=== PATIENT | female | born 2005 | race Caucasian/White ===

== ENCOUNTER 2025-06-07 11:13 | Emergency (ER) | payer OTHER, SELFPAY ==
--- OUTSIDE RECORDS SUMMARY | 2025-05-17 11:44 | XMS_ITS | Encounter Summary ---
Author Organization [facility] Address [address] [place] [address] Care Team Providers Care Building Dismantler Name Role Phone JoeAlondra ren TAMIA BECKER Primary Care Provider [phone] Reason for Visit * Auth/Cert Specialty Diagnoses / Procedures Referred By Tru craven Referred To Contact Surgery Diagnoses Gender dysphoria Gender dysphoria [F64.9] Procedures [place] MASTECTOMY, SIMPLE, COMPLETE bilateral nipple sparing mastectomies Vidya Amaral MD [facility] [address] [place] [address] Phone: tel: fax: [facility] [address] [place], [place] [address] Phone: tel: Referral ID Status Reason Start Date Expiration Date Visits Re quested Visits Authorized [id number] 1 1 Encounter Details Date Type Department Care Team (Late st Contact Info) Description 05/17/2025 11:44 AM CDT - 05/17/2025 6:13 PM CDT Hospital Encounter [facility] Pre[facility]/Phase II [address] [place] [address] Vidya Amaral MD [facility] [address] [place] [address] Discharge Disposition: Home or Self Care Social History Tobacco Use Types Packs/Day Years Used Date Smoking Tobacco: Never Passive Smoke Exposure: Never Smokeless Tobacco: Never Tobacco Cessation:Counseling Given: Not Answered Alcohol Use Standard Drinks/Week Comments Yes 0 (1 standard drink = 0.6 oz pur e alcohol) 1 per week Interpersonal Safety Answer Date Record ed Do you feel physically and e motionally safe where you currently live? Yes 05/17/2025 Within the past 12 months, h ave you been hit, slapped, kicked or otherwise physically hurt by someone? No 05/17/2025 Within the past 12 months, h ave you been humiliated or emotionally abused in other ways by your partner or ex-partner? No 05/17/2025 Comments No Sex and Gender Information Value Date Recorded Sex Assigned at Not on file Legal Sex Male 12:09 PM CDT Gender Identity Transgender Male 04/26/2025 9:08 AM CDT Sexual Orientation Not on file Travel History Travel Start Travel End [place] 02/13/2025 05/10/2025 documented as of this encounter Last Filed Vital Signs Vital Sign Reading Time Taken Comments Blood Pressure 114/72 05/17/2025 4:45 PM CDT Pulse 78 05/17/2025 4:45 PM CDT Temperature 36.9 C (98.4 F) 05/17/2025 4:45 PM CDT Respiratory Rate 14 05/17/2025 4:45 PM CDT Oxygen Saturation 97% 05/17/2025 4:45 PM CDT Inhaled Oxygen Concentration - - Weight 65.3 kg (143 lb 14.4 oz) 025 12:13 PM CDT Height 170.2 cm (5' 7) 05/17/2025 12:1 3 PM CDT Body Mass Index 22.54 05/17/2025 12:13 PM CDT documented in this encounter Discharge Instructions * Discharge Instructions* Shelia Campos RN - 05/17/2025 12:56 PM CDT Today you were given 1,000 mg of Tylenol at 12:54 pm. The recommended daily maximum dose is 4000 mg. Same Day Surgery Discharge Instructions for Sedation and General Anesthesia It's not unusual to feel dizzy, light-headed or faint for up to 24 hours after surgery or while taking pain medication. If you have these symptoms: sit for a few minutes before standing and have someone assist you when you get up to walk or use the bathroom. You should rest and relax for the next 24 hours. We recommend you make arrangements to have an adult stay with you for at least 24 hours after your discharge. Avoid hazardous and strenuous activity. DO NOT DRIVE any vehicle or operate mechanical equipment for 24 hours following the end of your surgery. Even though you may feel normal, your reactions may be affected by the medication you have received. Do not drink alcoholic beverages for 24 hours following surgery. Slowly progress to your regular diet as you feel able. It's not unusual to feel nauseated and/or vomit after receiving anesthesia. If you develop these symptoms, drink clear liquids (apple juice, rafael ed, broth, 7-up, etc. ) until you feel better. If your nausea and vomiting persists for 24 hours, please notify your surgeon. All narcotic pain medications, along with inactivity and anesthesia, can cause constipation. Drinking plenty of liquids and increasing fiber intake will help. For any questions of a medical nature, call your surgeon. Do not make important decisions for 24 hours. If you had general anesthesia, you may have a sore throat for a couple of days related to the breathing tube used during surgery. You may use Cepacol lozenges to help with this discomfort. If it worsens or if you develop a fever, contact your surgeon. If you feel your pain is not well managed with the pain medications prescribed by your surgeon, please contact your surgeon's office to let them know so they can address your concerns. Jama Henson Drain Home Care Instructions What is a Jama Henson (HARRISON) Drain? This is a small tube that connects to a bulb. Its gentle suction removes extra fluid from a surgical wound. Your doctor will remove the tube when the amount of fluid decreases. The color and amount of fluid varies. Right after surgery the fluid is bright red. Over time, it changes to light pink and may become clear or the color of straw. How should I care for my tube site? Keep the skin around the tube dry. Check with your doctor about how to shower. You may need to cover the site with plastic when you shower. Or, it may be okay to let the site get wet and put on a clean bandage after you shower. If the bandage gets wet, you will need to change it. How should I care for the bulb? Keep the bulb compressed at all times except while you empty it. Attach the bulb to your clothing with tape and a safety pin. Try to empty the bulb at the same time every day. Empty the bulb at least once a day, or when the bulb becomes half full. If it becomes too full, there will not be enough suction. To empty the bulb: Wash your hands. Open the bulb cap. Drain the fluid from the bulb into the measuring cup. If you have two drains, use two cups. Clean the mouth of the bulb with an alcohol wipe if your nurse told you to. Squeeze the bulb (fold it in half before you close the bulb cap) If it does not stay compressed, call your nurse or clinic. Write the amount of drainage on the drainage record (see back page). If you have two drains, write the amount for each bulb. Flush the drainage down the toilet. Rinse the measuring cup. Wash your hands. When should I call my doctor? Call your doctor if: You have a fever over 101??F (38.3??C), taken under the tongue. The drainage increases or smells bad. The skin around your tube has increased redness, swelling, warmth or pain. You have pus or fluid leaking at the tube site. Your stitches break. You think the tube is not draining. The tube falls out. You have any problems or concerns. Your drainage record: Empty your bulb at least once per day or when 1/2 to 1/3 full. Write down the date, time and amountof drainage in each bulb. Bring this record to each clinic visit. Date Time Bulb 1: amount of Drainage in (ml or cc) Bulb 2: amount of drainage (in ml or cc) Notes If you have questions or concerns about your procedure, call Dr. Amaral at [phone] documented in this encounter Medications at Time of Discharge ALBUTEROL SULFATE PO Take by mouth. senna-docusate (SENOKOT-S/JESSIE LACE) 8.6-50 MG tablet Take 1 tablet by mouth daily. TESTOSTERONE CYPIONATE & PROP IJ Inject as directed. documented as of this encounter Progress Notes * Kortney Ram RN - 05/17/2025 6:04 PM CDT A&O, VSS, pain well controlled. Incisions under lance wrap with steri strips intact, CDI. IV out.Belongings returned to patient. No Rx noted on discharge. Message sent to primary surgical team forreview. Patient OK with discharge to home without script in hand at this time due to low pain at time of discharge. Will update once response from surgical team received. Patient advised to call rn occupational number with pain increase if unable to control with pre-discussed ibuprofen and tylenol . Patient verbalized understanding and is comfortable discharging to home at this time. documented in this encounter H&P Notes * Vidya Amaral MD - 05/17/2025 1:32 PM CDT I have reviewed the H & P that is linked to this encounter and examined the patient. There are no significant changes. Source Note - Bernardo, Provider - 05/13/2025 9:04 AM CDT documented in this encounter Nursing Notes * Nita Brock RN - 05/17/2025 3:29 PM CDT Total amount of liposuction was 200 mL. * Celine Zuleta RN - 05/17/2025 1:13 PM CDT HARRISON drain discharge instructions reviewed with Mike Smalls in presence of pt. Discharge instructions on how to strip drains briefly reviewed. All questions answered. No further concerns at this point. Teach back method used to ensure patient and family/friend understanding. Pt and mom report no need for further instructions after surgery. * Dana Genao RN - 05/11/2025 4:43 PM CDT Patient returned call to inform us that he has his H&P scheduled tomorrow (05/12/25). Surgery scheduled 05/17/[address] Amaral. documented in this encounter Miscellaneous Notes * Op Note - Vidya Amaral MD - 05/17/2025 2:05 PM CDT PLASTIC SURGERY OPERATIVE NOTE Patient Name: Scotty Tracey Date of Service: 05/17/2025 PREOPERATIVE DIAGNOSES: 1. Gender dysphoria [F64.9] POSTOPERATIVE DIAGNOSES: 1. Gender dysphoria [F64.9] SURGEON: Vidya Amaral MD OR STAFF: Anthropology Professor: Vilma Patterson RN; Marley Perez RN Relief Anthropology Professor: Nita Brock RN Relief Scrub: Kimberly Avalos Scrub Person: Linda Sethi Imposer: David Teixeira ANESTHESIA: General ESTIMATED BLOOD LOSS: * No blood loss amount entered * SPECIMEN(S): ID Type Source Tests Collected by Time Destination 1 : Left breast tissue:160gm Tissue Breast, Left SURGICAL PATHOLOGY EXAM Vidya Amaral MD05/17/2025 3:11 PM 2 : Right breast tissue:135 gm Tissue Breast, Right SURGICAL PATHOLOGY EXAM Vidya Amaral MD 05/17/2025 2:52 PM PROCEDURES: 1. Bilateral nipple sparing mastectomies INDICATIONS: Patient is a 20 year old with gender dysphoria. They present today for bilateral mastectomies in treatment of their dysphoria. DESCRIPTION OF PROCEDURE: Patient was marked for incisions and taken to the operating room. General anesthesia was administered. The chest area was prepped and draped in a sterile manner. A transverse incision was then made at the level of the inframammary fold and dissection was carried down to the underlying chest wall. The breast tissue was undermined at the level of the pectoralis muscle and dissection was carried cephalad until the entire breast tissue was undermined. A superior mastectomy flap was then designed and breast tissue was removed from the flap with electrocautery. Hemostasis was achieved. Patient was brought to the upright position and excess skin along the inframammary fold was marked.Patient was returned to supine position. Incision was made along the superior mastectomy flap to remove redundant skin. Hemostasis was achieved. Additional tissue was removed and the superior mastectomy flap to achieve a smooth contour. Tumescent was infiltrated into the preaxial areas and standardliposuction was completed with a 4 mm cannula. Additional breast tissue was removed after liposuction. Inferiorly, the skin was tacked to the inframammary fold using interrupted 2-0 PDS suture. The incision was reapproximated with interrupted 2-0 PDS in the superficial fascia. The skin incision was then closed with interrupted 3-0 Monocryl in the subcutaneous tissue followed by running 4-0 subcuticular Monocryl suture. Prior to closure a 15 Burundian HARRISON drain was placed and secured with a 3-0 nylon suture. The same procedure was completed on the other side. AA transverse incision was then made at the level of the inframammary fold and dissection was carried down to the underlying chest wall. The breasttissue was undermined at the level of the pectoralis muscle and dissection was carried cephalad until the entire breast tissue was undermined. A superior mastectomy flap was then designed and breast tissue was removed from the flap with electrocautery. Hemostasis was achieved. Patient was brought to the upright position and excess skin along the inframammary fold was marked.Patient was returned to supine position. Incision was made along the superior mastectomy flap to remove redundant skin. Hemostasis was achieved. Additional tissue was removed and the superior mastectomy flap to achieve a smooth contour. Tumescent was infiltrated into the preaxial areas and standardliposuction was completed with a 4 mm cannula. Additional breast tissue was removed after liposuction. Inferiorly, the skin was tacked to the inframammary fold using interrupted 2-0 PDS suture. The incision was reapproximated with interrupted 2-0 PDS in the superficial fascia. The skin incision was then closed with interrupted 3-0 Monocryl in the subcutaneous tissue followed by running 4-0 subcuticular Monocryl suture. Prior to closure a 15 Burundian HARRISON drain was placed and secured with a 3-0 nylon suture. Benzoin and Steri-Strips were placed along the inframammary incisions followed by gauze and Lance wrap. FINDINGS: Right breast tissue weighed 135 grams and left breast tissue weighed 160 grams. MD Munir [facility] [phone] documented in this encounter Plan of Treatment Not on file documented as of this encounter Goals Goal Patient Goal Type Associated Problems Recent Progress Patient-Stated? Author MYC ECC SURG ENROLL Care Plan MyC ECC SURG ENROLL No RudolphPriscila rothman Lary documented as of this encounter Procedures Procedure Name Priority Date/Time Associated Diagnosis Comments SURGICAL PATHOLOGY EXAM Routine 05/17/2025 2:52 PM CDT MASTECTOMY, SIMPLE, COMPLETE 05/17/2025 1:43 PM CDT Gender dysphoria Special Needs *asthma LAB RESULT - HIM SCAN 05/12/2025 12:00 AM CDT documented in this encounter Results * Surgical Pathology Exam (05/17/2025 2:52 PM CDT) Case Report Surgical Pathology Report Case: [id number] Authorizing Provider: Vidya Amaral MD Collected: 05/17/2025 02:52 PM Ordering Location: [facility] Received: 05/17/2025 03:06 PM [facility] OR Pathologist: Izabela Huffman MD Specimens: A) - Breast, Right, Right breast tissue:135 gm B) - Breast, Left, Left breast tissue:160gm 05/19/2025 11:01 AM CDT [facility] Final Diagnosis A. Breast, right, resection: - Benign breast tissue and skin. - Weight: 135 grams. B. Breast, left, resection: - Benign breast tissue and skin. - Weight: 160 grams. 05/19/2025 11:01 AM CDT [facility] at 1101 CDT Clinical Information Gender dysphoria. 05/19/2025 11:01 AM CDT [facility] Gross Description A(2). Breast, Right, Right breast tissue:135 gm: Received in formalin, labeled the patient's name, MR number and right breast tissue, are multiple irregular, yellow-juarez and lobulated portions of fibroadipose tissue partially surfaced by irregular, pink-juarez and wrinkled skin; weighing 135 grams and measuring 11.3 x 10.6 x 3.1 cm in aggregate. The skin is grossly unremarkable; sectioning reveals a yellow-juarez and lobulated cut surface without evidence of nodularity or induration. The cut surface is comprised of 50% yellow, fatty adipose tissue and 50% white-juarez fibrous stroma. Metal Bench Patternmaker sections are submitted in formalin in three cassettes. Time collected: 14:52 on 05/17/2025 Time in formalin: 15:07 05/17/2025 B(1). Breast, Left, Left breast tissue:160gm: Received in formalin, labeled the patient's name, MR number and left breast tissue, are multiple irregular, yellow-juarez and lobulated portions of fibroadipose tissue partially surfaced by irregular, pink-juarez and wrinkled skin; weighing 160 grams and measuring 12.7 x 9.3 x 4.6 cm in aggregate. The skin is grossly unremarkable; sectioning reveals a yellow-juarez and lobulated cut surface without evidence of nodularity or induration. The cut surface is comprised of 50% yellow, fatty adipose tissue and 50% white-juarez fibrous stroma. Metal Bench Patternmaker sections are submitted in formalin in three cassettes. Time collected: 15:11 on 05/17/2025 Time in formalin: 15:17 05/17/2025 Sabrina ANDRE(ASCP)CM 05/17/2025 3:41 PM 05/19/2025 11:01 AM [facility] Microscopic Description Microscopic examination was performed. 05/19/2025 11:01 AM [facility] Performing Labs The technical component of this testing was completed at [facility]. Stain controls for all stains resulted within this report have been reviewed and show appropriate reactivity. 05/19/2025 11:01 AM CDT LABORATORY Case Images 05/19/2025 11:01 AM CDT LABORATORY Tissue RIGHT BREAST STRUCTURE / Unknown 05/17/2025 3:11 PM CDT 05/17/2025 3:17 PM CDT Tissue specimen (specimen) RIGHT BREAST STRUCTURE / Unknown 05/17/2025 2:52 PM CDT 05/17/2025 3:06 PM CDT Vidya Amaral MD LAB - BEAKER AP Final R esult LABORATORY [facility] [address] Lab (1st floor, no room number) [place] [address], [place] LABORATORY [facility] [address] 1[address] floor, [address] [place] [address], [place] [phone] * Lab Result - HIM Scan (05/12/2025 12:00 AM CDT) 05/12/2025 Provider Outside NON-BEAKER LAB TESTING Final Result documented in this encounter Visit Diagnoses Not on filedocumented in this encounter Administered Medications Inactive Administered Medications - up to 3 most recent administrations Medication Order MAR Action Action Date Dose Rate Site acetaminophen (TYLENOL) tablet 1,000 mg 1,000 mg, Oral, ONCE, On Fri05/17/25 at 1230, For 1 dose, Maximum acetaminophen dose from all sources = 75 mg/kg/day not to exceed 4 gram, Pre-procedure $Given 05/17/2025 12:54 PM CDT 1,000 mg documented in this encounter Active and Recently Administered Medications Times are shown in CDT. Scheduled Medication Order 05/15/2025 05/16/2025 05/17/2025 acetaminophen (TYLENOL) tablet 1,000 mg (COMPLETED) 1,000 mg, Oral, ONCE, On Fri05/17/25 at 1230, For 1 dose, Maximum acetaminophen dose from all sources = 75 mg/kg/day not to exceed 4 gram, Pre-procedure 1254 ($Given - Provi renard: Celine Zuleta RN) ceFAZolin Sodium (ANCEF) injection 2 g (COMPLETED) Routine, 2 g, Intravenous, PRE-OP/PRE-PROCEDURE, Starting on Fri05/17/25 at 1211, For 1 dose, Give first dose within 1 hour PRIOR to incision. If patient weight is greater than or equal to 120 kg increase dose to 3 g., Indications: Perioperative Pharmacoprophylaxis, Pre-procedure 1350 ($Given - Provi renard: Gibran Urrutia APRN SENIOR MOBILE APPLICATION DEVELOPER) PRN Medication Order 05/15/2025 05/16/2025 05/17/2025 BUPivacaine (MARCAINE) 0.25 % injection (CANCELED) PRN, Starting on Fri05/17/25 at 1515, Intra-procedure 1515 ($Given - Provi renard: Vidya Amaral MD) Gee's solution (1L LR + 30 mL 1% lidocaine + 1 mL EPI 1:1,000) (CANCELED) PRN, Starting on Fri05/17/25 at 1517, Intra-procedure 1517 ($Given - Provi renard: Vidya Amaral MD) sodium chloride 0.9% (bottle) irrigation (CANCELED) PRN, Starting on Fri05/17/25 at 1404, Intra-procedure 1404 ($Given - Provi renard: Vidya Amaral MD) documented in this encounter Additional Health Concerns Active Problems Noted Date Diagnosed Date MyC ECC SURG ENROLL 02/09/2025 documented as of this encounter Care Teams Building Dismantler Relationship Specialty Start Date End Date Alondra Aguirre APRN GROCERY STOCKER [address] [address] PCP - General 04/26/25 documented as of this encounter
--- OUTSIDE RECORDS SUMMARY | 2025-05-17 13:40 | XMS_ITS | Encounter Summary ---
Author Organization [place] Address [address] [place] [id number] Care Team Providers Care Facilities Maintenance Engineer Name Role Phone Alondra Aguirre TAMIA TICKET DISPATCHER Primary Care Provider [phone] Reason for Visit * Auth/Cert Specialty Diagnoses / Procedures Referred By Tru t Referred To Contact Surgery Diagnoses Gender dysphoria Gender dysphoria [F64.9] Procedures [place] MASTECTOMY, SIMPLE, COMPLETE bilateral nipple sparing mastectomies Vidya Amaral MD [facility] [address] [place] [address] Phone: tel: fax: [facility] [address] [place] [address] Phone: tel: Referral ID Status Reason Start Date Expiration Date Visits Re quested Visits Authorized [id number] 1 1 Encounter Details Date Type Department Care Team (Late st Contact Info) Description 05/17/2025 1:40 PM CDT [facility] [address] [place] [address] Juan Alberto Rangel MD [facility] [address] [place] [id number] Geovanna Matias Anesthesia Record Procedure Summary Procedure Name Responsible Anesthesiologist Anesthesia Start Time Anesthesia Stop Time bilateral nipple sparing mastectomies (Bilateral: Breast) Juan Alberto Rangel MD 05/17/25 1340 05/17/25 1557 Events Date Time Event Comment 05/17/2025 1220 1340 An Start Anesthesia Star t is defined as when the anesthesia provider assumed care, began anesthesia prep, remained continuously present with the patient, and excludes all time for performing the pre-anesthesia evaluation. The Pre-Anesthesia Evaluation was completed before Anesthesia Start. 1343 An Start Data 1345 AN REASSESS I attest that I have identified and re-evaluated the patient immediately before the induction of anesthesia and I am satisfied that the anesthetic plan is suitable for the patient's condition and procedure. The first vital signs recorded are pre-induction. Gibran Urrutia APRN CONTRACTING ENGINEER 1347 An Induction 1348 An LMA 1355 Anesthesia Ready for Procedu re 1406 AN INCISION 1547 LMA Removed 1549 an stop data 1557 An Stop Electronically signed by Demian Fraser APRN CONTRACTING ENGINEER on May 17, 2025 4:01 PM Meds Name Total midazolam 1 mg/mL 2 mg fentaNYL 50 mcg/mL 100 mcg lidocaine 2% 100 mg propofol 10 mg/mL 1,086.87 mg phenylephrine (AMINA-SYNEPHRINE) injection 100 mcg dexamethasone (DECADRON) 4 mg/mL 4 mg ondansetron 2 mg/mL 4 mg ceFAZolin Sodium (ANCEF) injection 2 g 2 g dexmedeTOMIDine (PRECEDEX) 4 mcg/mL bolu s 20 mcg HYDROmorphone (DILAUDID) (PF) injection 0.5 mg/0.5 mL 0.3 mg LR 1,000 mL * Agents Name O2 N2O Air Exp Sevoflurane Exp Isoflurane Exp Desflurane Ins Sevoflurane Ins Isoflurane Ins Desflurane * Blood No blood administrations on file. Lines, Drains, and Airways Type Details Placement Removal Incision/Surgical Site Incision; 5; 1405; Anterior, Left; Breast 05/17/25 1405 by Vilma Patetrson, ANA Incision/Surgical Site Incision; 5; 1405; Anterior, Right; Breast 05/17/25 1405 by Vilma Patterson, ANA Peripheral IV 05/17/25; 1243; 20 G ; Left, Posterior; Hand; Chlorhexidine; None; 1; Tolerated well 05/17/25 1243 by Celine Zuleta RN 05/17/25 1802 by Kortney Ram RN Supraglottic Airway Placement Date: 05/17/25; Placement Time: 1401 (created via procedure documentation); Mask Ventilation: 0; LMA Size: 4; Airway Brand: I-Gel; Attempts: 1 05/17/25 1401 by Gibran Urrutia, JIGGER MACHINE OPERATOR CONTRACTING ENGINEER 05/17/25 1547 by Demian Fraser, JIGGER MACHINE OPERATOR CONTRACTING ENGINEER Drain 05/17/25; 1514; Closed/Suction; Right; Breast; Bulb; 15 Colombian 05/17/25 1514 by Nita Brock RN 05/17/25 1913 by Inpatient, Nurse Drain 05/17/25; 1517; Closed/Suction; Left; Breast; Bulb; 15 Colombian 05/17/25 1517 by Nita Brock RN 05/17/25 1913 by Inpatient, Nurse documented in this encounter Social History Tobacco Use Types Packs/Day Years Used Date Smoking Tobacco: Never Passive Smoke Exposure: Never Smokeless Tobacco: Never Alcohol Use Standard Drinks/Week Comments Yes 0 [...] file Travel History Travel Start Travel End [place] 02/13/2025 05/10/2025 documented as of this encounter OR Notes * Anesthesia Postprocedure Evaluation - Mercedez Hanley MD - 05/17/2025 4:12 PM CDT Patient: Scotty Tracey Procedure: Procedure(s): bilateral nipple sparing mastectomies Anesthesia Type: General Note: Disposition: Outpatient Postop Pain Control: Uneventful Sign Out: Well controlled pain PONV: No Neuro/Psych: Uneventful Sign Out: Acceptable/Baseline neuro status Airway/Respiratory: Uneventful Sign Out: Acceptable/Baseline resp. status CV/Hemodynamics: Uneventful Sign Out: Acceptable CV status; No obvious hypovolemia; No obvious fluid overload Other NRE: DID A NON-ROUTINE EVENT OCCUR? Last vitals: Vitals Value Taken Time BP 97/53 05/17/25 16:00 Temp 36.7 ??C (98.06 ??F) 05/17/25 16:10 Pulse 91 05/17/25 16:10 Resp 14 05/17/25 16:10 SpO2 99 % 05/17/25 16:10 Vitals shown include unfiled device data. Electronically Signed By: Mercedez Hanley MD May 17, 2025 4:12 PM * Anesthesia Procedure Notes - Gibran Urrutia APRN CRNA - 05/17/2025 2:01 PM CDTAssociated Order(s): Airway Airway Staff - Anesthesiologist: Juan Alberto Rangel MD CONTRACTING ENGINEER: Gibran Urrutia APRN CONTRACTING ENGINEER Performed By: CONTRACTING ENGINEER Consent for Airway Urgency: elective Indications and Patient Condition Indications for airway management: kaden-procedural Induction type:intravenous Mask difficulty assessment: 0 - not attempted Final Airway Details Final airway type: supraglottic airway Supraglottic Airway Details Type: LMA Brand: I-Gel LMA size: 4 Post intubation assessment Placement verified by: capnometry, equal breath sounds and chest rise Number of attempts at approach: 1 Number of other approaches attempted: 0 Secured with: tape Ease of procedure: easy Dentition: Intact and Unchanged * Anesthesia Preprocedure Evaluation - Juan Alberto Rangel MD - 05/17/2025 11:56 AM CDT Anesthesia Pre-Procedure Evaluation Patient: Scotty Tracey : 2005 Procedure : Procedure(s): bilateral nipple sparing mastectomies Past Medical History: Diagnosis Date Asthma Transgender male Past Surgical History: Procedure Laterality Date WISDOM TOOTH EXTRACTION Allergies Allergen Reactions Seasonal Allergies Runny nose Sneezing Social History Tobacco Use Smoking status: Never Passive exposure: Never Smokeless tobacco: Never Substance Use Topics Alcohol use: Yes Wt Readings from Last 1 Encounters: No data found for Wt Anesthesia Evaluation Pt has not had prior anesthetic ROS/MED HX ENT/Pulmonary: (+) asthma (-) sleep apnea Neurologic: - neg neurologic ROS Cardiovascular: - neg cardiovascular ROS METS/Exercise Tolerance: Hematologic: Musculoskeletal: GI/Hepatic: - neg GI/hepatic ROS (-) GERD Renal/Genitourinary: - neg Renal ROS Endo: (-) Type II DM Psychiatric/Substance Use: Infectious Disease: Malignancy: Other: Physical Exam Airway Mallampati: I TM distance: >3 FB Neck ROM: full Mouth opening: >= 4 cm Cardiovascular - normal exam Dental (+) Completely normal teeth Pulmonary - normal exam Neurological - normal exam He appears awake, alert and oriented x3. Other Findings OUTSIDE LABS: CBC: No results found for: WBC, HGB, HCT, PLT BMP: No results found for: NA, POTASSIUM, CHLORIDE, CO2, BUN, CR, GLC COAGS: No results found for: PTT, INR, FIBR POC: No results found for: BGM, HCG, HCGS HEPATIC: No results found for: ALBUMIN, PROTTOTAL, ALT, AST, GGT, ALKPHOS, BILITOTAL,BILIDIRECT, PEMA OTHER: No results found for: PH, LACT, A1C, CHARBEL, PHOS, MAG, LIPASE, AMYLASE, TSH,T4, T3, CRP, SED Anesthesia Plan ASA Status: 2 NPO Status: NPO Appropriate Anesthesia Type: General. Airway: supraglottic airway. Induction: intravenous. Maintenance: Balanced, TIVA. Techniques and Equipment: - Airway: Planned airway equipment includes supraglottic airway. - Monitoring Plan: standard ASA monitoring Consents Anesthesia Plan(s) and associated risks, benefits, and realistic alternatives discussed. Questions answered and patient/roofing sales representative(s) expressed understanding. - Discussed: - Discussed with: Patient Postoperative Care Pain management: multimodal analgesia. Comments: Juan Alberto Rangel MD I have reviewed the pertinent notes and labs in the chart from the past 30 days and (re)examined the patient. Any updates or changes from those notes are reflected in this note. Clinically Significant Risk Factors Present on Admission documented in this encounter Miscellaneous Notes * Anesthesia Care Transfer Note - Demian Fraser APRN CRNA - 05/17/2025 4:13 PM CDT Patient: Scotty Tracey Procedure: Procedure(s): bilateral nipple sparing mastectomies Diagnosis: Gender dysphoria [F64.9] Diagnosis Additional Information: No value filed. Anesthesia Type: General Note: Oropharynx: oropharynx clear of all foreign objects and spontaneously breathing Level of Consciousness: drowsy Oxygen Supplementation: nasal cannula Level of Supplemental Oxygen (L/min / FiO2): 2 Independent Airway: airway patency satisfactory and stable Dentition: dentition unchanged Vital Signs Stable: post-procedure vital signs reviewed and stable Report to RN Given: handoff report given Patient transferred to: PACU Comments: Pt exhibits spontaneous respirations, follows commands, suctioned, LMA removed, exchanging well, transferred to pacu with O2 @ 2L via NC, all monitors and alarms on, VSS, patent IV, report and transfer of care to RN. Handoff Report: Identifed the Patient, Identified the Reponsible Provider, Reviewed the pertinent medical history, Discussed the surgical course, Reviewed Intra-OP anesthesia mangement and issues during anesthesia, Set expectations for post-procedure period and Allowed opportunity for questions andacknowledgement of understanding Vitals: Vitals Value Taken Time BP 97/53 05/17/25 16:00 Temp 36.7 ??C (98.06 ??F) 05/17/25 16:12 Pulse 92 05/17/25 16:12 Resp 8 05/17/25 16:12 SpO2 97 % 05/17/25 16:12 Vitals shown include unfiled device data. Electronically Signed By: Demian Fraser APRN CRNA May 17, 2025 4:13 PM documented in this encounter Plan of Treatment Not on file documented as of this encounter Goals Goal Patient Goal Type Associated Problems Recent Progress Patient-Stated? Author MYC ECC SURG ENROLL Care Plan MyC ECC SURG ENROLL No Klaudia Priscila G Care pathway for general surgery Care Plan Care pathway for general surgery No Susan Rodriguez MYC ECC SURG DAY 10 MED Care Plan Care pathway for general surgery No Susan Rodriguez MYC ECC SURG DAY 4 PREVENT BLOOD CLOT - GOAL Care Plan Care pathway for general surgery No Susan Rodriguez MYC ECC GENERAL SURGERY Care Plan General Surgery Health Exam Escalation No Susan Rodriguez MYC ECC SURG HEALTH NOT YES - 5 Care Plan MYC ECC SURG HEALTH NOT YES -5 No Susan Rodriguez documented as of this encounter Procedures Procedure Name Priority Date/Time Associated Diagnosis Comments ANE AIRWAY SUPRAGLOTTIC PERFORMABLE Routine 05/17/2025 2:01 PM CDT documented in this encounter Results * ANE AIRWAY SUPRAGLOTTIC PERFORMABLE (05/17/2025 2:01 PM CDT) Narrative Gibran Urrutia APRN CONTRACTING ENGINEER - 05/17/2025 2:01 PM CDT Gibran Urrutia APRN CONTRACTING ENGINEER 05/17/2025 2:01 PM Airway Staff - Anesthesiologist: Juan Alberto Rangel MD CONTRACTING ENGINEER: Gibran Urrutia APRN CONTRACTING ENGINEER Performed By: CONTRACTING ENGINEER Consent for Airway Urgency: elective Indications and Patient Condition Indications for airway management: kaden-procedural Induction type:intravenous Mask difficulty assessment: 0 - not attempted Final Airway Details Final airway type: supraglottic airway Supraglottic Airway Details Type: LMA Brand: I-Gel LMA size: 4 Post intubation assessment Placement verified by: capnometry, equal breath sounds and chest rise Number of attempts at approach: 1 Number of other approaches attempted: 0 Secured with: tape Ease of procedure: easy Dentition: Intact and Unchanged Juan Alberto Rangel MD [place] ANESTHESIA Final Result documented in this encounter Visit Diagnoses Not on filedocumented in this encounter Administered Medications Inactive Administered Medications - up to 3 most recent administrations Medication Order MAR Action Action Date Dose Rate Site ceFAZolin Sodium (ANCEF) injection 2 g Routine, 2 g, Intravenous, PRE-OP/PRE-PROCEDURE, Starting on Fri05/17/25 at 1211, For 1 dose, Give first dose within 1 hour PRIOR to incision. If patient weight is greater than or equal to 120 kg increase dose to 3 g., Indications: Perioperative Pharmacoprophylaxis, Pre-procedureIndications:Perioperati ve Pharmacoprophylaxis $Given 05/17/2025 1:50 PM CDT 2 g dexAMETHasone (DECADRON) injection Intravenous, PRN, Administer over 1 Minutes, Starting on e 05/17/25 at 1347, Anesthesia Intra-op $Given 05/17/2025 1:47 PM CDT 4 mg dexmedeTOMIDine (PRECEDEX) 4 mcg/mL bolus Intravenous, CONTINUOUS PRN, Starting on Fri05/17/25 at 1408, Anesthesia Intra-op $Bolus 05/17/2025 3:10 PM CDT 8 mcg $New Bag 05/17/2025 2:08 PM CDT 12 mcg fentaNYL (PF) (SUBLIMAZE) injection Intravenous, PRN, Administer over 3-5 Minutes, Starting on Fri05/17/25 at 1347, Anesthesia Intra-op $Given 05/17/2025 2:08 PM CDT 50 mcg $Given 05/17/2025 1:47 PM CDT 50 mcg HYDROmorphone (PF) (DILAUDID) injection Intravenous, PRN, Administer over 2-10 Minutes, Starting on Fri05/17/25 at 1433, Anesthesia Intra-op $Given 05/17/2025 2:30 PM CDT 0.3 mg lactated ringers infusion Intravenous, CONTINUOUS PRN, Anesthesia Intra-op, Starting on Fri05/17/25 at 1343, Until Fri05/17/25 at 1601 $New Bag 05/17/2025 3:37 PM CDT $New Bag 05/17/2025 1:43 PM CDT lidocaine 2% injection (MDV) Intravenous, PRN, Starting on Fri05/17/25 at 1347, Anesthesia Intra-op $Given 05/17/2025 1:47 PM CDT 100 mg midazolam (VERSED) injection Intravenous, Administer over 2 Minutes, PRN, Starting on Fri05/17/25 at 1341, Anesthesia Intra-op $Given 05/17/2025 1:41 PM CDT 2 mg ondansetron (ZOFRAN) injection Intravenous, PRN, Administer over 2-5 Minutes, Starting on Fri05/17/25 at 1510, Anesthesia Intra-op $Given 05/17/2025 3:10 PM CDT 4 mg phenylephrine (AMINA-SYNEPHRINE) injection Intravenous, CONTINUOUS PRN, Starting on Fri05/17/25 at 1424, Anesthesia Intra-op $New Bag 05/17/2025 2:24 PM CDT 100 mcg propofol (DIPRIVAN) injection 10 mg/mL vial Intravenous, PRN, Starting on Fri05/17/25 at 1347, Anesthesia Intra-op Rate/Dose Change 05/17/2025 3:10 PM CDT 60 mcg/kg/min 23.508 mL/hr Rate/Dose Change 05/17/2025 2:43 PM CDT 100 mcg/kg/min 39. 18 mL/hr Rate/Dose Change 05/17/2025 2:31 PM CDT 150 mcg/kg/min 58. 77 mL/hr documented in this encounter Additional Health Concerns Active Problems Noted Date Diagnosed Date MyC ECC SURG ENROLL 02/09/2025 Care pathway for general surgery 04/16/2025 General Surgery Health Exam Escalation 5 MYC ECC SURG HEALTH NOT YES -5 05/07/2025 documented as of this encounter Care Teams Facilities Maintenance Engineer Relationship Specialty Start Date End Date Alondra Aguirre APRN TICKET DISPATCHER [address] [address] PCP - General 04/26/25 documented as of this encounter
--- OUTSIDE RECORDS SUMMARY | 2025-05-17 13:45 | XMS_ITS | Encounter Summary ---
Author Organization [place] Address [address] [place] [address]. [place] [address] Care Team Providers Care Drop Hammer Mechanic Name Role Phone JoeAlondra ren TAMIA BECKER Primary Care Provider [phone] Reason for Visit * Auth/Cert Specialty Diagnoses / Procedures Referred By Tru craven Referred To Contact Surgery Diagnoses Gender dysphoria Gender dysphoria [F64.9] Procedures [place] MASTECTOMY, SIMPLE, COMPLETE bilateral nipple sparing mastectomies Vidya Amaral MD [facility] [address] [place] [address] Phone: tel: [facility] [address] [place] [address] Phone: tel: Referral ID Status Reason Start Date Expiration Date Visits Re quested Visits Authorized [id number] 1 1 Encounter Details Date Type Department Care Team (Late st Contact Info) Description 05/17/2025 1:45 PM CDT - 05/17/2025 3:45 PM CDT [facility] [address] [place] [address] Vidya Amaral MD [facility] [address] [place], [place] [address] bilateral nipple sparing mastectomies Surgery Details Date/Time Status Location OR Service Patient Class Case Class Case Type Trauma Case? 05/17/2025 1:45 PM Posted [facility] OR OR [facility] Same Day Surgery Elective Panel 1 Procedure LRB Anes Op Region Wound Class Comments bilateral nipple sparing mastectomies Bilateral General Breast I-Clean Surgeon Surgeon Role Service Panel Vidya Amaral MD [facility] onstruction 1 Special Needs *asthma documented in this encounter Social History Tobacco [...] Sign Reading Time Taken Comments Blood Pressure 125/68 05/17/2025 12:13 PM CDT Pulse 55 05/17/2025 12:13 PM CDT Temperature 36.6 C (97.8 F) 05/17/2025 12:13 PM CDT Respiratory Rate 14 05/17/2025 12:1 3 PM CDT Oxygen Saturation 99% 05/17/2025 12: 13 PM CDT Inhaled Oxygen Concentration - - [...] about your procedure, call Dr. Amaral at [phone] documented in this encounter Medications at Time [...] surgical team received. Patient advised to call construction cost estimator number with pain increase if unable to [...] [F64.9] SURGEON: Vidya Amaral MD OR STAFF: Gas Blender: Vilma Patterson RN; Marley Perez RN Relief Gas Blender: Nita Brock RN Relief Scrub: Kimberly Avalos Scrub Person: Linda Sethi Board Mill Supervisor: David Teixeira ANESTHESIA: General ESTIMATED BLOOD LOSS: [...] Monocryl suture. Prior to closure a 15 Albanian HARRISON drain was placed and secured with [...] was infiltrated into the preaxial areas and standard liposuction was completed with a 4 mm cannula. [...] Monocryl suture. Prior to closure a 15 Albanian HARRISON drain was placed and secured with a 3-0 nylon suture. Benzoin and Steri-Strips were placed along the inframammary incisions followed by gauze and Lance wrap. FINDINGS: Right breast tissue weighed 135 grams and left breast tissue weighed 160 grams. MD Munir Thomas Pl[facility] Surgery [phone] documented in this encounter Plan of Treatment Not on file documented as of this encounter Goals Goal Patient Goal Type Associated Problems Recent Progress Patient-Stated? Author MYC ECC SURG ENROLL Care Plan MyC ECC SURG ENROLL No Priscila Rudolph documented as of this encounter Procedures Procedure Name Priority Date/Time Associated Diagnosis Comments SURGICAL PATHOLOGY EXAM Routine 05/17/2025 2:52 PM CDT MASTECTOMY, SIMPLE, COMPLETE 05/17/2025 1:43 PM CDT Gender dysphoria Special Needs *asthma LAB RESULT - HIM SCAN 05/12/2025 12:00 AM CDT documented in this encounter Results * Surgical Pathology Exam (05/17/2025 2:52 PM CDT) Case Report Surgical Pathology Report Case: [id number] Authorizing Provider: Vidya Amaral MD Collected: 05/17/2025 02:52 PM Ordering Location: [facility] Received: 05/17/2025 03:06 PM [facility] Main OR Pathologist: Izabela Huffman MD Specimens: A) - Breast, Right, Right breast tissue:135 gm B) - Breast, Left, Left breast tissue:160gm 05/19/2025 11:01 AM CDT [facility] Final Diagnosis A. Breast, right, resection: - Benign breast tissue and skin. - Weight: 135 grams. B. Breast, left, resection: - Benign breast tissue and skin. - Weight: 160 grams. 05/19/2025 11:01 AM [facility] at 1101 CDT Clinical Information Gender dysphoria. 05/19/2025 11:01 AM [facility] Gross Description A(2). Breast, Right, Right [...] adipose tissue and 50% white-juarez fibrous stroma. Territory Sales Manager sections are submitted in formalin in three [...] adipose tissue and 50% white-juarez fibrous stroma. Territory Sales Manager sections are submitted in formalin in three cassettes. Time collected: 15:11 on 05/17/2025 Time in formalin: 15:17 05/17/2025 Sabrina ANDRE(ASCP) 05/17/2025 3:41 PM 05/19/2025 11:01 AM [facility] Microscopic Description Microscopic examination was performed. 05/19/2025 11:01 AM [facility] Performing Labs The technical component of this testing was completed at [facility]. Stain controls for all [...] - BEAKER AP Final R esult LABORATORY [facility] [address] Lab (1st floor, no room number) [place] [address], [facility] [address] 1[address] floor, [address] [place] [address], [facility] [phone] * Lab Result - HIM Scan (05/12/2025 12:00 AM CDT) 05/12/2025 Provider Outside NON-BEAKER LAB TESTING Final Result documented in this encounter Visit Diagnoses Diagnosis Gender dysphoria documented in this encounter Administered Medications Inactive Administered Medications - up to 3 most recent administrations Medication Order MAR Action Action Date Dose Rate Site acetaminophen (TYLENOL) tablet 1,000 mg 1,000 mg, Oral, ONCE, On Fri05/17/25 at 1230, For 1 dose, Maximum acetaminophen dose from all sources = 75 mg/kg/day not to exceed 4 gram, Pre-procedure $Given 05/17/2025 12:54 PM CDT 1,000 mg BUPivacaine (MARCAINE) 0.25 % injection PRN, Starting on Fri05/17/25 at 1515, Intra-procedure $Given 05/17/2025 3:15 PM CDT 30 mLs Operative Site/Surgical Site Gee's solution (1L LR + 30 mL 1% lidocaine + 1 mL EPI 1:1,000) PRN, Starting on Fri05/17/25 at 1517, Intra-procedure $Given 05/17/2025 3:17 PM CDT 252 mLs Operative Site/Surgical Site sodium chloride 0.9% (bottle) irrigation PRN, Starting on Fri05/17/25 at 1404, Intra-procedure $Given 05/17/2025 2:04 PM CDT 1,000 mLs Operative Site/Surgical Site documented in this encounter Active and Recently [...] ($Given - Provi renard: Gibran Urrutia APRN MILLER HELPER) PRN Medication Order 05/15/2025 05/16/2025 05/17/2025 BUPivacaine [...] documented as of this encounter Care Teams Drop Hammer Mechanic Relationship Specialty Start Date End Date Alondra Aguirre APRN TRAVEL COUNSELOR [employer] [address] [address] PCP - General 04/26/25 documented as of this encounter
[2025-06-07] VITALS (8 sets, daily range): BP systolic 113–119; BP diastolic 65–86; PULSE 121–145; RESP 20–26; TEMP 36.6; O2SAT 89–98; BMI 20.8
--- NOTE | 2025-06-07 11:36 | ED_ITS ---
HPI - General Adult General Date Seen: 06/07/25 Chief complaint: Shortness of Breath/Dyspnea Stated complaint: shortness of breath Time Seen by Provider: 06/07/25 11:31 History of Present Illness HPI narrative: Patient is a 20-year-old transgender male here for evaluation of shortness of breath and cough. He says for the past couple of weeks he has been having an increased need for his inhaler although he has not felt short of breath per se. Shortness of breath he just noted this morning when he was unable to walk across campus due to dyspnea. He also has had a cough and has been coughing up some sputum. Has not had a fever that he is aware of. Denies chest pain. No unusual lower extremity swelling or pain. Past medical history of asthma, recent bilateral mastectomy in [place] 2 weeks ago as an outpatient procedure. He has been using his inhaler fairly regularly, last use at about 45 minutes ago. Related Data Home Medications ?Medication ?Instructions ?Recorded ?Confirmed albuterol 90 mcg/actuation aerosol mcg inhalation 05/23 03/16 inhaler testosterone IM 06/07/25 Allergies Allergy/AdvReac Type Severity Reaction Status Date / Time No Known Drug Allergies Allergy Verified 06/07/25 11:25 Review of Systems Status of ROS: Reports: 10 or more systems reviewed and unremarkable except as noted in History and below [facility] Social History Smoking Status: Never smoker How often do you have a drink containing alcohol: 2-4 times a month AUDIT-C Alcohol total score: 2 Non-prescribed substance use: marijuana (any form) Exam Narrative: Exam Narrative: Vital signs reviewed In general, alert, nontoxic young man, does not appear to be in any respiratory distress. Head: Normocephalic, atraumatic. Eyes: Sclera clear. Pupils equal and reactive. ENT: Mucous membranes moist. Neck: Supple without adenopathy. Heart: Tachycardic and regular. Lungs: Lungs are overall clear, good air movement, no crackles or wheezes. Abdomen: Soft, nontender to palpation. Extremities: Well perfused, pulses intact. No significant edema. Neurologic: Alert, conversant. Speech fluent, face symmetric. Moves all extremities equally. Skin: Warm, dry well perfused. Affect: Normal. Const: Vital Signs, click to edit/add: Vital Signs - 24 hr 06/07/25 11:18 06/07/25 12:03 06/07/25 12:04 Temperature 98 F Pulse Rate 138 H Pulse Rate [Right Pulse Oximeter] 145 H 133 H Respiratory Rate 26 H 20 Blood Pressure 119/86 Blood Pressure [Ri ght Upper Arm] 113/65 119/86 Pulse Oximetry 89 94 96 Oxygen Delivery Me thod Room Air Room Air 06/07/25 12:05 06/07/25 12:15 06/07/25 12:30 Temperature Pulse Rate 133 H 135 H 124 H Pulse Rate [Right Pulse Oximeter] Respiratory Rate Blood Pressure Blood Pressure [Ri ght Upper Arm] Pulse Oximetry 94 95 98 Oxygen Delivery Me thod 06/07/25 12:32 06/07/25 12:45 Temperature Pulse Rate 123 H 121 H Pulse Rate [Right Pulse Oximeter] Respiratory Rate Blood Pressure 117/75 Blood Pressure [Ri ght Upper Arm] Pulse Oximetry 97 98 Oxygen Delivery Me thod Course Course ED Course: Patient presents with dyspnea today associated with cough, increased inhaler needs over the past couple of weeks. Diagnostic considerations would include asthma exacerbation, viral illness, pneumonia, pulmonary embolism, myocarditis, congestive heart failure, pneumothorax, arrhythmia, among others. He is markedly tachycardic and is also hypoxic. Will obtain chest x-ray, EKG and basic labs. At this time given his lung exam I do not think a neb is likely to be helpful and given his tachycardia will avoid that for now. Chest x-ray by my review was negative. Final radiology report likewise negative. With ongoing tachycardia, clear lungs, normal white blood cell count, presentation seem less likely to be due to pn pneumonia and I did recommend CT scan to look for PE. His D-dimer returned at 1.7. Troponin was normal. No evidence of heart failure. By my review of his chest CT scan there is no large blurred in PE, radiology notes no PE, he has hematoma in the right breast which he is aware of, he says he is going in next week have that drained. Hemoglobin is 15. He does have some inflammatory or infectious airway disease, small pneumo mediastinum but no pneumothorax. Heart rate is improved with fluids though not normal. Nonetheless, I am not finding any evidence of serious cause for his symptoms. Will go ahead and put him on some prednisone, recommend recheck in a couple days if not feeling improved. Return any time for significant worsening or new symptoms. Vital Signs Vital signs: Initial Vital Signs Temperature 98 F 06/07/25 11:18 Temperature Source Temporal Artery Scan 06/07/25 11:18 Pulse Rate 145 H 06/07/25 11:18 Pulse Rhythm Regular 06/07/25 11:18 Pulse Strength 3+ Normal 06/07/25 11:18 Respiratory Rate 26 H 06/07/25 11:18 Blood Pressure 113/65 06/07/25 11:18 Blood Pressure Mean 81 06/07/25 11:18 Blood Pressure Position Sitting 06/07/25 11:18 Pulse Oximetry 89 06/07/25 11:18 Oxygen Delivery Method Room Air 06/07/25 11:18 Vital Signs Temperature 98 F 06/07/25 11:18 Pulse Rate 145 H 06/07/25 11:18 Respiratory Rate 26 H 06/07/25 11:18 Blood Pressure 113/65 06/07/25 11:18 Pulse Oximetry 89 06/07/25 11:18 Oxygen Delivery Method Room Air 06/07/25 11:18 Temperature 98 F 06/07/25 11:18 Pulse Rate 121 H 06/07/25 12:45 Respiratory Rate 20 06/07/25 12:03 Blood Pressure 117/75 06/07/25 12:32 Pulse Oximetry 98 06/07/25 12:45 Oxygen Delivery Method Room Air 06/07/25 12:03 Medications Administered Medications: Discontinued Medications Generic Name Dose Route Start Last Admin Trade Name Freq PRN Reason Stop Dose Admin Sodium Chloride 1,000 mls @ 1,000 mls/hr 06/07/25 12:15 06/07/25 13:40 0.9 % Sodium Chloride 1000 Ml IV 06/07/25 13:14 Infused .Q1H EMMY Infusion Medical Decision Making Lab Data Lab results reviewed: Yes I reviewed the patient's lab results Labs: Lab Results 06/07/25 06/07/25 Range/Units 11:30 11:44 WBC 8.53 (4.50-11.00) K/uL RBC 5.14 (4.30-5.90) m/uL Hgb 15.9 (13.5-17.5) gm/dL Hct 48.5 (37.0-53.0) % MCV 94 (80-100) fL MCH 31 (26-34) pg MCHC 33 (32-36) gm/dL RDW Coeff of Frankie 13.0 (11.5-15.5) % Plt Count 330 (140-440) K/uL Neut % (Auto) 78.1 H (42.0-72.0) % Lymph % (Auto) 11.1 L (20-44) % Maries % (Auto) 5.3 (0.0-11.0) % Eos % (Auto) 5.0 (0.0-7.0) % Baso % (Auto) 0.4 (0.0-3.0) % Neut # (Auto) 6.70 (1.7-7.0) K/uL Lymph # (Auto) 0.90 (0.90-2.90) K/uL Maries # (Auto) 0.50 (0.00-0.90) K/UL Eos # (Auto) 0.43 (0.00-0.50) K/uL Baso # (Auto) 0.03 (0.00-0.30) K/uL Abs Immat Gran (auto) 0.01 (0.00-0.30) K/uL Imm/Tot Granulo (auto) 0.1 % D-Dimer Quant (PE/DVT) 1.73 H (0.00-0.50) ug/ml Sodium 141 (135-149) mmol/L Potassium 3.9 (3.6-5.1) mmol/L Chloride 104 (96-114) mmol/L Carbon Dioxide 29 (20-32) mmol/L Anion Gap 8 (7-15) mEq/L BUN 16 (5-24) mg/dL Creatinine 0.9 (0.5-1.5) mg/dL Estimated Creat Clear 120.78 Estimated GFR 125 ml/min Glucose 101 (60-115) mg/dL Calcium 9.5 (8.4-10.6) mg/dL C-Reactive Protein 0.8 (0.5-1.0) mg/dL SARS-CoV-2 (PCR) Negative SARS-CoV-2 (Negative) Influenza Type A (PCR) Negative PCR FLU A (Negative) Influenza Type B (PCR) Negative PCR FLU B (Negative) RSV (PCR) Negative PCR RSV (Negative) POC Troponin I 0.00 L (0.01-0.04) ng/ml Imaging Data Chest x-ray: Attestation: I have reviewed the pertinent imaging results. Radiologist's impression: Patient: Scotty Tracey MR#: [id number] : 2005 Acct:[id number] Loc: ED Service Date: 06/07/[address]: Ordering Physician: Ness Mckeon M.D. Date of Service: 06/07/25 Procedure(s): XR chest 1V portable Accession Number(s): [id number] cc: Ness Mckeon M.D.; Provider,Not a Local~ For Patients: As a result of the Cures Act, medical imaging exams and procedure reports are released immediately into your electronic medical record. You may view this report before your referring provider. If you have questions, please contact your health care provider. INDICATION: Shortness of breath TECHNIQUE: Chest 1 view COMPARISON: None FINDINGS: Cardiovascular and mediastinum: Heart size and vasculature are normal in caliber and appearance. Lungs and pleural spaces: Lungs are clear. No sign of infiltrate or mass. No sign of pleural effusion. No pneumothorax. Bones and soft tissues: No significant findings. IMPRESSION: No acute findings. Dictated by Sukhdev Min MD @ 06/07/2025 12:15:[address] scan - chest: Attestation: I have reviewed the pertinent imaging results. Radiologist's impression: Ordering Physician: Ness Mckeon M.D. Date of Service: 06/07/25 Procedure(s): CT angio chest PE protocol Accession Number(s): [id number] cc: Ness Mckeon M.D.; Provider,Not a Local~ For Patients: As a result of the Cures Act, medical imaging exams and procedure reports are released immediately into your electronic medical record. You may view this report before your referring provider. If you have questions, please contact your health care provider. INDICATION: Recent surgery with shortness of breath and tachycardia. Recent bilateral mastectomy. COMPARISON: Same day chest radiograph TECHNIQUE: CT angiogram chest with contrast, pulmonary embolism protocol. Multiplanar axial, coronal, and sagittal reformats are included. MIP images to improve detection of pulmonary emboli are included. Intravenous contrast: 95 mL Isovue 370. FINDINGS: PE: Well-timed contrast bolus. No pulmonary emboli. Normal caliber main pulmonary artery. Normal sized right heart chambers. No reflux of contrast below the diaphragm. Airway: Normal central tracheobronchial tree. There is circumferential bronchial wall thickening from the mid to peripheral lungs. Lungs: Good lung expansion. There is some scattered tree-in-bud nodules. No consolidations. No edema. No emphysema. Pleura: No pleural effusion. No pneumothorax. Lymph nodes: Right axillary and subpectoral adenopathy. The largest right subpectoral lymph node measures 1.3 x 1.4 cm. The largest right axillary lymph node measures 1.4 x 1.3 cm. Left axillary lymph nodes are mildly prominent but not technically enlarged by size criteria.. Mediastinum: Small pneumomediastinum. No mass. Heart and great vessels: No pericardial effusion. Normal cardiac chamber size. Scattered atherosclerotic plaques. No aortic aneurysm. Chest wall: Heterogeneous collection in the right mastectomy bed measures 2.7 x 8.0 x 10.6 cm (AP by transverse by cc). Along the medial margin it is fairly hyperdense and the other portion has a more fluid density. There is deep subcutaneous edema and stranding in the anterior chest wall/mastectomy sites bilaterally. Upper abdomen: Moderate amount of ingested food and fluid in the stomach. Bones: No fractures. No focal bone lesions. IMPRESSION: 1. No pulmonary embolism. 2. Infectious or inflammatory airways disease. 3. Small pneumomediastinum. No pneumothorax. 4. Postoperative hematoma/seroma in the right mastectomy site. 5. Right subpectoral and right larger than left axillary lymph nodes are probably reactive. Discussed with Dr. Mckeon at 12:58 p.m. on 06/07/2025. Please note that all CT scans at this facility use dose modulation, iterative reconstruction, and/or weight-based dosing when appropriate to reduce radiation dose to as low as reasonably achievable. Dictated by Digna Atkinson MD @ 06/07/2025 12:59:11 PM Discharge Plan Discharge Clinical Impression: Asthma with acute exacerbation Patient Disposition: Home, Self-Care Condition: Improved Instructions: Asthma (DC) Additional Instructions: Use your inhaler as needed. Prednisone as prescribed. Your lab tests today are overall reassuring. Right your D-dimer which we used to screen for blood clots is elevated, we your CT scan does not show any sign of blood clots. D-dimer can also be elevated postoperatively and I suspect that is the cause of your elevated D-dimer. There is no evidence of pneumonia. I would expect you to gradually improve over the next week. If you are feeling worse, have new symptoms such as high fevers, lightheadedness, fainting, or other worsening. If you are not feeling better in the next week or so, follow-up with primary care for recheck. Surgery follow-up as planned for the hematoma. Prescriptions: No Action albuterol 90 mcg/actuation aerosol inhalation testosterone IM Follow Up/Referrals: Provider,Not a Local [Primary Care Provider, Family Practice] Stand Alone Forms: [employer] Info Instructions
[2025-06-07 11:52] LABS: Hematocrit* 48.5 % (37.0-53.0); Hemoglobin* 15.9 gm/dL (13.5-17.5); Immature Granulocytes Abs Auto 0.01 K/uL (0.00-0.30); Immature Granulocytes Pct Auto 0.1 %; Mean Corpuscular HGB Conc 33 gm/dL (32-36); Mean Corpuscular Hemoglobin 31 pg (26-34); Mean Corpuscular Volume 94 fL (80-100); RDW Coefficient of Variation % 13.0 % (11.5-15.5); Red Blood Count* 5.14 m/uL (4.30-5.90); White Blood Count* 8.53 K/uL (4.50-11.00)
[2025-06-07 11:54] LABS: Lymphocytes Absolute Auto 0.90 K/uL (0.90-2.90); Slide Review Reflex No
--- NOTE | 2025-06-07 12:03 | CRLHL7_ITS ---
For Patients: As a result of the Century Cures Act, medical imaging exams and procedure reports are released immediately into your electronic medical record. You may view this report before your referring provider. If you have questions, please contact your health care provider. INDICATION: Recent surgery with shortness of breath and tachycardia. Recent bilateral mastectomy. COMPARISON: Same day chest radiograph TECHNIQUE: CT angiogram chest with contrast, pulmonary embolism protocol. Multiplanar axial, coronal, and sagittal reformats are included. MIP images to improve detection of pulmonary emboli are included. Intravenous contrast: 95 mL Isovue 370. FINDINGS: PE: Well-timed contrast bolus. No pulmonary emboli. Normal caliber main pulmonary artery. Normal sized right heart chambers. No reflux of contrast below the diaphragm. Airway: Normal central tracheobronchial tree. There is circumferential bronchial wall thickening from the mid to peripheral lungs. Lungs: Good lung expansion. There is some scattered tree-in-bud nodules. No consolidations. No edema. No emphysema. Pleura: No pleural effusion. No pneumothorax. Lymph nodes: Right axillary and subpectoral adenopathy. The largest right subpectoral lymph node measures 1.3 x 1.4 cm. The largest right axillary lymph node measures 1.4 x 1.3 cm. Left axillary lymph nodes are mildly prominent but not technically enlarged by size criteria.. Mediastinum: Small pneumomediastinum. No mass. Heart and great vessels: No pericardial effusion. Normal cardiac chamber size. Scattered atherosclerotic plaques. No aortic aneurysm. Chest wall: Heterogeneous collection in the right mastectomy bed measures 2.7 x 8.0 x 10.6 cm (AP by transverse by cc). Along the medial margin it is fairly hyperdense and the other portion has a more fluid density. There is deep subcutaneous edema and stranding in the anterior chest wall/mastectomy sites bilaterally. Upper abdomen: Moderate amount of ingested food and fluid in the stomach. Bones: No fractures. No focal bone lesions. IMPRESSION: 1. No pulmonary embolism. 2. Infectious or inflammatory airways disease. 3. Small pneumomediastinum. No pneumothorax. 4. Postoperative hematoma/seroma in the right mastectomy site. 5. Right subpectoral and right larger than left axillary lymph nodes are probably reactive. Discussed with Dr. Mckeon at 12:58 p.m. on 06/07/2025. Please note that all CT scans at this facility use dose modulation, iterative reconstruction, and/or weight-based dosing when appropriate to reduce radiation dose to as low as reasonably achievable. Dictated by Digna Atkinson MD @ 06/07/2025 12:59:11 PM (Electronically Signed)
[2025-06-07 12:04] LABS: Chloride* 104 mmol/L (96-114)
[2025-06-07 12:05] LABS: Potassium* 3.9 mmol/L (3.6-5.1); Sodium* 141 mmol/L (135-149)
[2025-06-07 12:08] LABS: Anion Gap 8 mEq/L (7-15); Blood Urea Nitrogen* 16 mg/dL (5-24); Calcium* 9.5 mg/dL (8.4-10.6); Carbon Dioxide* 29 mmol/L (20-32); Creatinine* 0.9 mg/dL (0.5-1.5); Est. Creatinine Clearance* 120.78; Estimated Glomerular Filt Rate 125 ml/min; Glucose* 101 mg/dL (60-115)
[2025-06-07 12:10] LABS: D Dimer Quantitative* 1.73 ug/ml (0.00-0.50); Troponin, Point-of-Care* 0.00 ng/ml (0.01-0.04)
--- OUTSIDE RECORDS SUMMARY | 2025-06-07 12:11 | XMS_ITS | Encounter Summary ---
Author Organization [facility] Address [facility] [place] [address] Care Team Providers Care Online Tutor Name Role Phone Alondra Aguirre TAMIA QUANTITATIVE MANAGER Primary Care Provider [phone] Encounter Details Date Type Department Care Team (Latest Contact Info) Description 05/17/2025 Travel Social History Tobacco Use Types Packs/Day Years [...] file Travel History Travel Start Travel End [place] 02/13/2025 05/10/2025 documented as of this encounter Plan of Treatment Not on file documented as of this encounter Goals Goal Patient Goal Type Associated Problems Recent Progress Patient-Stated? Author MYC ECC SURG ENROLL Care Plan MyC ECC SURG ENROLL No Priscila Rudolph Care pathway for general surgery Care Plan Care pathway for general surgery No Susan Rodriguez MYC ECC SURG DAY 10 MED Care Plan Care pathway for general surgery No Susan Rodriguez MYC ECC SURG DAY 4 PREVENT BLOOD CLOT - GOAL Care Plan Care pathway for general surgery No LilliantSusan MYC ECC GENERAL SURGERY Care Plan General Surgery Health Exam Escalation No Susan Rodriguez MYC ECC SURG HEALTH NOT YES - 5 Care Plan MYC ECC SURG HEALTH NOT YES -5 No Susan Rodriguez documented as of this encounter Visit Diagnoses Not on filedocumented in this encounter Additional Health Concerns Active Problems Noted Date Diagnosed Date MyC ECC SURG ENROLL 02/09/2025 Care pathway for general surgery 04/16/2025 General Surgery Health Exam Escalation MYC ECC SURG HEALTH NOT YES -5 05/07/2025 documented as of this encounter Care Teams Online Tutor Relationship Specialty Start Date End Date Alondra Aguirre APRN QUANTITATIVE MANAGER [address] [address] PCP - General 04/26/25 documented as of this encounter
--- OUTSIDE RECORDS SUMMARY | 2025-06-07 12:11 | XMS_ITS | Encounter Summary ---
Author Organization [facility] Address [address] [place] [address]. [place] [address] Care Team Providers Care Mechanical Technical Service Specialist Name Role Phone JoeAlondra ren TAMIA BECKER Primary Care Provider [phone] Encounter Details Date Type Department Care Team (Late st Contact Info) Description 05/19/2025 Results Follow-Up [facility] Services - Surgical Specialties Service Line [address] [place] [id number] Vidya Amaral MD [facility] [address] [id number] Social History Tobacco Use Types Packs/Day Years [...] file Travel History Travel Start Travel End [place] 02/13/2025 05/10/2025 documented as of this encounter Plan of Treatment Not on file documented as of this encounter Goals Goal Patient Goal Type Associated Problems Recent Progress Patient-Stated? Author MYC ECC SURG ENROLL Care Plan MyC ECC SURG ENROLL No Priscila Rudolph Care pathway for general surgery Care Plan Care pathway for general surgery No Lilliant, Susan MYC ECC SURG DAY 10 MED Care Plan Care pathway for general surgery No Rodrigohart, [facility] MYC ECC SURG DAY 4 PREVENT BLOOD CLOT - GOAL Care Plan Care pathway for general surgery No Rodrigohart, Susan MYC ECC GENERAL SURGERY Care Plan General Surgery Health Exam Escalation No Rodrig[facility]art[place]un[place] MYC ECC SURG HEALTH NOT YES - [...] documented as of this encounter Care Teams Mechanical Technical Service Specialist Relationship Specialty Start Date End Date Alondra Aguirre APRN CANVASSING MANAGER [address] [address] PCP - General 04/26/25 documented as of this encounter
--- OUTSIDE RECORDS SUMMARY | 2025-06-07 12:11 | XMS_ITS | Clinical Summary ---
Author Organization [facility] Address [address] [address] Care Team Providers Care Mold Cutting Machine Operator Name Role Phone Clinician, Not Found MD Primary Care Provider Un available Source Comments You are receiving this document as you are listed as the primary care provider,follow-up provider, or the patient has been referred to you for consultation.This is in compliance with the Medicare and[facility] EHR Incentive Program,which states Providers who transition their patient to another setting of careor provider of care or refers their patient to another provider of care shouldprovide summary care record for each transition of care or referral. [employer] Allergies No known active allergies Medications ALBUterol sulfate HFA 108 (90 Base) MCG/ACT inhaler Inhale 1-2 Puffs every 4 hours as needed for Wheezing. Active testosterone cypionate (DEPO-TESTOSTE ASHER) 200 MG/ML injection INJECT 0.25ML (50MG) SUBCUTANEOUSLY WEEKLY 5 Active benzonatate (TESSALON) 200 MG capsule Take 1 Capsule (200 mg) by mouth three times a day as needed for Cough. 30 Capsule 5 Active ALBUterol sulfate HFA 108 (90 Base) MCG/ACT inhaler Inhale 1-2 Puffs every 4 hours as needed for Wheezing. 1 Each 3 5 Active Social History Tobacco Use Types Packs/Day Years Used Date Smoking Tobacco: Never Assessed Comments Unknown Sex and Gender Information Value Date Recorded Sex Assigned at Not on file Legal Sex Female 5:11 PM SALES ACCOUNT REPRESENTATIVE Gender Identity Not on file Sexual Orientation Not on file Last Filed Vital Signs Vital Sign Reading Time Taken Comments Blood Pressure 116/70 11/28/2024 8:48 AM CDT Pulse 86 11/28/2024 8:48 AM CDT Temperature 36.7 C (98.1 F) 11/28/2024 8:48 AM CDT Respiratory Rate 16 11/28/2024 8:48 AM CDT Oxygen Saturation 99% 11/28/2024 8:48 AM CDT Inhaled Oxygen Concentration - - Weight - - Height - - Body Mass Index - - Plan of Treatment Health Maintenance Due Date Last Done Comments Cervical Cancer Screening Due 2004 Chlamydia 2004 Hep C Screening (Preventive Services) 2004 MenB Immunization Discussion 2004 Asthma ACT (score of 20 or higher) 2008 HPV Vaccine (1 - 3-dose series) 02/21/2019 HIV Screening (Preventive Services) 2020 Adult Preventive Visit 02/21/2022 DTaP/Tdap/Td Vaccine (1 - Tdap) 02/21/2023 HepB Vaccine (1) 02/21/2023 COVID-19 Vaccine (1 - 2023-2 5 season) 2025 Influenza Vaccine (#1) 2025 Zoster/Shingles Vaccine (1 of 2) 02/21/2054 HepA Vaccine Aged Out No longer eligi ble based on patient's age to complete this topic Hib Vaccine Aged Out No longer eligi ble based on patient's age to complete this topic IPV (Polio) Vaccine Aged Out No longe r eligible based on patient's age to complete this topic MCV4 Vaccine Aged Out No longer eligi ble based on patient's age to complete this topic Pneumococcal Vaccine Aged Out No long er eligible based on patient's age to complete this topic Insurance [employer] Care Teams Mold Cutting Machine Operator Relationship Specialty Start Date End Date Clinician, Not Found, [place] [address] PCP - General 11/28/24
--- OUTSIDE RECORDS SUMMARY | 2025-06-07 12:11 | XMS_ITS | Clinical Summary ---
Author Organization [facility] Address [address] [place] [id number] Care Team Providers Care Field Agent Name Role Phone Alondra Aguirre APRN [facility] Primary Care Provider [phone] Allergies Active Allergy Reactions Criticality Noted Date Comments Seasonal Allergies 05/16/2025 Runny nose Sneezing Medications ALBUTEROL SULFATE PO Take by mouth. Active TESTOSTERONE CYPIONATE & PROP IJ Inject as directed. Active senna-docusate (SENOKOT-S/PERIC OLACE) 8.6-50 MG tablet Take 1 tablet by mouth daily. Active Encounters Date Type Department Care Team Description 05/19/2025 Results Follow-Up [facility] - Surgical Specialties Service Line [address] [place] [phone] Vidya Amaral MD 05/17/2025 1:45 PM CDT - 05/17/2025 3:45 PM CDT Surgery [facility] PeriOP Services [address] [place] [phone] Vidya Amaral MD bilateral nipple sparing mastectomies 05/17/2025 1:40 PM CDT Anesthesia Event [facility] PeriOP Services [address] [place] [phone] Juan Alberto Rangel MD Josten, Zoe K 05/17/2025 11:44 AM CDT - 05/17/2025 6:13 PM CDT Hospital Encounter [facility] PreOP/Phase II [address] [place] [phone] Viday Amaral MD Discharge Disposition: Home or Self Care 05/17/2025 Travel from Last 3 Months Social History Tobacco Use Types Packs/Day Years [...] file Travel History Travel Start Travel End [place] 02/13/2025 05/10/2025 Last Filed Vital Signs Vital Sign Reading [...] Mass Index 22.54 05/17/2025 12:13 PM CDT Plan of Treatment Health Maintenance Due Date Last Done Comments ADVANCE CARE PLANNING 2004 ANNUAL REVIEW OF HM ORDERS 2004 YEARLY PREVENTIVE VISIT 02/21/2007 HIV SCREENING 02/21/2019 MENINGITIS B VACCINE (2 of 2 - Trumenba SCDM 2-dose series) 11/15/2021 05/15/2021 HEPATITIS C SCREENING 02/21/2022 PHQ-2 (once per calendar year) 2024 DTAP/TDAP/TD VACCINE (7 - Td or Tdap) 02/27/2025 02/27/2015, 02/24/2009, 05/31/2005, Additional history exists COVID-19 VACCINE ( - season) 2025 06/26/2023, 07/05/2022, 09/17/2021, Additional history exists INFLUENZA VACCINE (#1) 2025 , 07/04/2022, 09/09/2021, Additional history exists ZOSTER VACCINE (1 of 2) 02/21/2054 HEPATITIS B VACCINE Completed 2004, 2004, 2004 PNEUMOCOCCAL VACCINE: PEDIATRICS (0 to 5 YEARS) AND AT-RISK PATIENTS (6 to 49 YEARS) Aged Out 05/31/2005, 2004, 2004, Additional history exists No longer eligible based on patient's age to complete this topic HPV VACCINE Completed 06/24/2019, 05/15/2018 MENINGITIS VACCINE Completed 05/15/2021, 02/27/2015 Goals Goal Patient Goal Type Associated Problems Recent Progress Patient-Stated? Author MYC ECC SURG ENROLL Care Plan MyC ECC SURG ENROLL No Priscila Rudolph Care pathway for general surgery Care Plan Care pathway for general surgery No LilliantSusan MYC ECC SURG DAY 10 MED Care Plan Care pathway for general surgery No Susan Rodriguez MYC ECC SURG DAY 4 PREVENT BLOOD CLOT - GOAL Care Plan Care pathway for general surgery No Rodrigohart, [place] MYC ECC GENERAL SURGERY Care Plan General Surgery Health Exam Escalation No Susan Rodriguez MYC ECC SURG HEALTH NOT YES - 5 Care Plan MYC ECC SURG HEALTH NOT YES -5 No Susan Rodriguez Procedures Procedure Name Priority Date/Time Associated Diagnosis Comments SURGICAL PATHOLOGY EXAM Routine 05/17/2025 2:52 PM CDT ANE AIRWAY SUPRAGLOTTIC PERFORMABLE Routine 05/17/2025 2:01 PM CDT MASTECTOMY, SIMPLE, COMPLETE 05/17/2025 1:43 PM CDT Gender dysphoria Special Needs *asthma CREATININE (EXTERNAL RESULT) Routine 05/12/2025 10:00 AM CDT GLUCOSE (EXTERNAL RESULT) Routine 05/12/2025 10:00 AM CDT POTASSIUM (EXTERNAL RESULT) Routine 05/12/2025 10:00 AM CDT LAB RESULT - HIM SCAN 05/12/2025 12:00 AM CDT from Last 3 Months Results * Surgical Pathology Exam (05/17/2025 2:52 PM CDT) Case Report Surgical Pathology Report Case: [id number] Authorizing Provider: Vidya Amaral MD Collected: 05/17/2025 02:52 PM Ordering Location: [facility] Received: 05/17/2025 03:06 PM [facility] Main OR Pathologist: Izabela Huffman MD Specimens: [...] adipose tissue and 50% white-juarez fibrous stroma. Senior Drupal Developer sections are submitted in formalin in three [...] adipose tissue and 50% white-juarez fibrous stroma. Senior Drupal Developer sections are submitted in formalin in three cassettes. Time collected: 15:11 on 05/17/2025 Time in formalin: 15:17 05/17/2025 Sabrina ANDRE(ASCP)CM 05/17/2025 3:41 PM 05/19/2025 11:01 AM CDT LABORATORY Microscopic Description Microscopic examination was performed. 05/19/2025 11:01 AM CDT LABORATORY Performing Labs The technical component of this testing was completed at [facility]. Stain controls for all stains resulted within this report have been reviewed and show appropriate reactivity. 05/19/2025 11:01 AM CDT LABORATORY Case Images 05/19/2025 11:01 AM CDT LABORATORY Tissue RIGHT BREAST STRUCTURE / Unknown 05/17/2025 3:11 PM CDT 05/17/2025 3:17 PM CDT Tissue specimen (specimen) RIGHT BREAST STRUCTURE / Unknown 05/17/2025 2:52 PM CDT 05/17/2025 3:06 PM CDT us Vidya WHARTON - DARNELL PAULA Final R esult LABORATORY [facility] [address] [facility] (1st floor, no room number) [place] [address], [facility]ORY [facility] [address] 1[address], [address] [place] [address], [facility] [phone] * ANE AIRWAY SUPRAGLOTTIC PERFORMABLE (05/17/2025 2:01 PM CDT) Narrative Gibran Urrutia APRN SKIN CARE CONSULTANT - 05/17/2025 2:01 PM CDT Gibran Urrutia APRN SKIN CARE CONSULTANT 05/17/2025 2:01 PM Airway Staff - Anesthesiologist: Juan Alberto Rangel MD SKIN CARE CONSULTANT: Gibran Urrutia APRN SKIN CARE CONSULTANT Performed By: SKIN CARE CONSULTANT Consent for Airway Urgency: elective Indications and [...] Intact and Unchanged Juan Alberto Rangel MD [place] ANESTHESIA Final Result * Potassium (External Result) (05/12/2025 10:00 AM CDT) Potassium (External) 4.3 3.4 - 5.1 mmol/L [facility] Blood 05/12/2025 10:0 0 AM CDT Narrative [facility] - 05/12/2025 10:00 AM CDT [facility] - External Lab Results Provider Outside LAB - HIM EXTERNAL RESULT Final Result [address] [address], [facility] [phone] * Glucose (External Result) (05/12/2025 10:00 AM CDT) Glucose (External) 81 74 - 100 mg/dL [facility] Blood 05/12/2025 10:0 0 AM CDT Narrative [facility] - 05/12/2025 10:00 AM CDT [facility] - External Lab Results Provider Outside LAB - HIM EXTERNAL RESULT Final Result Performing Organization Address [facility] Co de Phone Number [address] [phone] * Creatinine (External Result) (05/12/2025 10:00 AM CDT) Creatinine (External) 0.8 0.5 - 1.0 mg/dL [facility] GFR Estimated (External) 107 60 - 128 mL/min [facility] Blood 05/12/2025 10:0 0 AM CDT Narrative [facility] - 05/12/2025 10:00 AM CDT [facility] - External Lab Results us Provider Outside LAB - HIM EXTERNAL RESULT Final Result Performing Organization Address [facility] Co de Phone Number [address] [phone] * Lab Result - HIM Scan (05/12/2025 12:00 AM CDT) 05/12/2025 Provider Outside [facility] NON-BEAKER LAB TESTING Final Result from Last 3 Months Additional Health Concerns Active Problems Noted Date Diagnosed Date MyC ECC SURG ENROLL 02/09/2025 Care pathway for general surgery 04/16/2025 General Surgery Health Exam Escalation MYC ECC SURG HEALTH NOT YES -5 05/07/2025 Insurance [email or web address] Care Teams Field Agent Relationship Specialty Start Date End Date Alondra Aguirre APRN [employer]ATION INST[employer]ER AND REPAIRER [address] [address] PCP - General 04/26/25
[2025-06-07 12:18] LABS: PCR FLU A Negative PCR FLU A (Negative); PCR FLU B Negative PCR FLU B (Negative); PCR RSV Negative PCR RSV (Negative); SARS PCR* Negative SARS-CoV-2 (Negative)
== END 2025-06-07 13:58 | disposition home or self-care (01) ==
PROVIDERS: Emergency Provider Emergency Medicine
DX: J45.901 Unspecified asthma with (acute) exacerbation (principal)
CPT/HCPCS: 36415; 71045; 71275; 80048; 84484; 85025; 85379; 86140; 87631; 93005; 99284; 99285; J7030; Q9967